=== PATIENT | female | born 1995 | race Caucasian/White ===

== ENCOUNTER → 2018-11-21 07:54 | Outpatient (CLI) | payer BC ==
--- NOTE | 2018-11-24 13:30 | EC ---
PATIENT:ALIZE WONG DATE OF SERVICE: 11/21/18 SEX: F MEDICAL RECORD: [id number] DATE OF : [birth year] LOCATION:[facility] AGE OF PATIENT: 23 ADMISSION DATE: 11/21/18 REFERRING PHYSICIAN: INTERPRETING PHYSICIAN: RADHA PATRICK MD ECHOCARDIOGRAM REPORT ECHO CHARGES 4 ECHO COMPLETE Date: 11/21/18 CLINICAL DIAGNOSIS: PALPITATONS, ASSESS FOR CARDIOMYOPATHY/MVP HX IRBBB ECHOCARDIOGRAPHIC MEASUREMENTS (adult normal given) AC root (d.<3.7cm) 2.4 cm LV Septum d (<1.2 cm> 1.2 cm Valve Excursion 1.0 cm LV Septum (systole) 1.4 cm Left Atria (s.<4.0cm> 3.1 cm LVPW d(<1.2cm) 1.5 cm RV (d.<2.3cm) 3.1 cm LVPW (sytole) 1.6 cm LV diastole(<5.6CM) 3.0 cm MV E-F(>70mm/sec) cm LV systole 2.2 cm LVOT Diameter 1.5 cm MV exc.(>10mm) 1.7 cm Est.ejection fraction (50-75%) % DOPPLER: LVIT cm/sec A 65.0 cm/sec E 91.0 cm/sec LA cm/sec RVSP 25 mmHg LVOT 97 cm/sec AOP1/2T m/s Asc. Ao 105 cm/sec RVOT 76 cm/sec RA cm/sec PA 87 cm/sec AV Gradient Peak 4.40 mmHg AV Mean 2.21 mmHg AV Area 1.7 cm MV Gradient Peak 3.17 mmHg MV Mean 1.06 mmHg MV Area cm COMMENTS: Residential Treatment Counselor: 2 SAMANTHA MOISE Lockstitch Hemmer: 1 Dr. Patrick TAPE# PACS Pericardial Effusion N DATE OF SERVICE: FINDINGS: 1. Left ventricular chamber size is within normal limits. Left ventricular systolic function is normal. Overall ejection fraction estimated at 55%. 2. Left atrium, right atrium, right ventricular chamber sizes are within normal limits. 3. Valvular structures have normal structure and motion. 4. Doppler interrogation reveals only mild mitral regurgitation, no other valvular insufficiency or stenosis. Pulmonary systolic pressure is estimated at ECHOCARDIOGRAM REPORT [id number] ALIZE WONG N 25 mmHg. 5. No evidence of pericardial effusion or left ventricular thrombus. TRANSINT:[id number] Voice Confirmation ID: [id number] DOCUMENT ID: [id number] RADHA PATRICK MD at 1330 CC: [id number] DICTATION DATE: 11/22/18 1207 TUBE AND MANIFOLD BUILDER: 11/22/18 1316 DEP CLI 11/21/18 [place] [id number] [place] [id number]
== END | disposition home or self-care (01) ==
LOC: D.HCCECHO 07:54
PROVIDERS: ATTEND Internal Medicine Interventional Cardiology
DX: R00.2 Palpitations (principal)

== ENCOUNTER → 2018-12-12 16:35 | Outpatient (CLI) | payer BC ==
[2018-12-12 17:12] LABS: T4 THYROXIN - FREE 1.04 ng/dL (0.76-1.46); THYROID STIMULATING HORMONE 1.44 uIU/mL (0.36-3.74)
== END | disposition home or self-care (01) ==
LOC: D.LABREF 16:35
PROVIDERS: ATTEND Internal Medicine Interventional Cardiology
DX: R00.0 Tachycardia, unspecified (principal)